=== PATIENT | female | born 1955 | race Caucasian/White ===

== ENCOUNTER 2017-04-09 16:15 | Emergency (ER) | payer OTHER ==
[2017-04-09] MEDS ORDERED: ASPIRIN 81 MG CHEW TAB ONE (16:20)
[2017-04-09] MEDS ORDERED: ASPIRIN 81 MG CHEW TAB PO ONE ×2 (16:35→16:47)
[2017-04-09] MEDS: NITROGLYCERIN 0.4 MG TAB.SUBL SL PRN ×2 (16:43→17:05)
[2017-04-09] MEDS ORDERED: METOPROLOL TARTRATE 5 MG/5 ML VIAL IVP ONE ×2 (16:45→16:48)
[2017-04-09] MEDS ORDERED: CLOPIDOGREL BISULFATE 75 MG TABLET PO ONE (16:47)
[2017-04-09] MEDS ORDERED: ENOXAPARIN SODIUM 80 MG/0.8 ML DISP.SYRIN SQ ONE (16:47)
[2017-04-09 16:48] LABS: BASOPHILS % 0.1 (0.0-1.5); EOSINOPHILS % 0.1 % (0.0-6.8); MEAN CORPUSCULAR HEMOGLOBIN 28.6 pg (28.0-34.0); MEAN CORPUSCULAR VOLUME 87.2 fl (80.0-100.0); MONOCYTES % 2.9 % (0.0-11.0); NEUTROPHILS # 19.2 # k/uL (1.4-7.7)
[2017-04-09] MEDS ORDERED: 0.9 % SODIUM CHLORIDE 1,000 ML IV ONE (16:52)
[2017-04-09 16:59] LABS: eGFR (African) > 60; eGFR (Non-African) > 60
--- NOTE | 2017-04-09 17:34 | Diagnostic Imaging Report ---
[facility] [id number] [facility] [address] [place], [place]. [address] Report Submission Date: Apr 09, 2017 5:02:21 PM CDT Patient Study Name: FRANKO WEISS Date: Apr 09, 2017 4:42:13 PM CDT Modality Type: CR Gender: F Description: CHEST : 55 Institution: [facility] Physician: VINNIE KATHLEEN - JACQUELINE Examination: Portable chest History: Chest discomfort Findings: Single view of the chest demonstrates a normal cardiac and mediastinal silhouette. Lung king without focal infiltrate. No effusion. Post cardiac surgery sternal wires. Osseous structures are appropriate for age. Impression: No acute process. Electronically signed on Apr 09, 2017 5:02:21 PM CDT by: Mauricio MATTHEWS
[2017-04-09] MEDS ORDERED: NITROGLYCERIN 0.4 MG TAB.SUBL SL ONE (17:36)
[2017-04-09] MEDS ORDERED: INSULIN REGULAR, HUMAN 100 UNIT/ML 3ML VIAL ONE (17:38)
--- NOTE | 2017-04-09 17:38 | ED Physician Documentation ---
Chest Pain - HISTORIAN Historian: patient - HPI Chief Complaint: Chest Pain Onset: hours (5 hours) Timing: still present, better Duration: constant Last known Well Date: 04/09/17 Last Known Well Time: 12:00 Last known Well Code/Unknown Code: Known Context: rest Severity: moderate Quality: tightness Chest Pain Radiation: shoulders (left), back Chest Pain Signs/Symptoms: diaphoresis, dyspnea Further Comments: yes (Patient states that she has a history of coronary artery disease. Has been having some intermittent chest pain that states is been stable without any increase frequency or intensity. Today at approximately noon patient developed some severe substernal chest pain with radiation into the left shoulder and arm and into the back area. It was associated with some diaphoresis and shortness of breath. Patient describes the pain as being 10 out of 10. Patient subsequently took one sublingual nitroglycerin with no relief. Approximately four hours as of the patient started having pain she came to the ED for evaluation. Patient has a history of HTN, hyperlipemia, boarderline DM.) - ROS CONST: no problems. denies: fever SKIN/ENDO: none - PAST HX [place] risk factors: hypertension, hyperlipidemia DVT/PE Risk Factors: none. denies: leg swelling, bedridden, paralysis, prior DVT Neuro deficit: none Lung disease: none Surgeries/Procedures: cardiac bypass (2 vessel 1999), hysterectomy Allergies/Adverse Reactions: Allergies Allergy/AdvReac Type Severity Reaction Status Date / Time azithromycin Allergy Verified 03/23/15 17:27 Home Medications: Ambulatory Orders Medication Instructions Recorded Aspirin [Ritu] 325 mg PO DAILY 03/23/15 - SOCIAL HX Smoking History: quit less than 1 year (quit 4 months ago) Alcohol Use: none Drug Use: none - FAMILY HX Family HX: CAD over 55 - VITAL SIGNS Vital Signs: Vital Signs Temp Pulse Resp BP Pulse Ox 142/71 07/09/16 09:20 - REVIEWED ASSESSMENTS Nursing Assessment Reviewed: Yes Vitals Reviewed: Yes Progress - Results/Orders Results/Orders: 17:17 Patient is resting and is pain free at this time. 17:37 Patient states that her pain is returning again and is a 2/10. Repeat NTG. 18:00 Patient is chest pain free ED Results Lab/Radiology - Radiology Radiology Impressions: Report Submission Date: Apr 09, 2017 5:02:21 PM CDT Patient Study Name: FRANKO WEISS Date: Apr 09, 2017 4:42:13 PM CDT Modality Type: CR Gender: F Description: CHEST : 55 Institution: [facility] Physician: VINNIE KATHLEEN - JACQUELINE Examination: Portable chest History: Chest discomfort Findings: Single view of the chest demonstrates a normal cardiac and mediastinal silhouette. Lung king without focal infiltrate. No effusion. Post cardiac surgery sternal wires. Osseous structures are appropriate for age. Impression: No acute process. Electronically signed on Apr 09, 2017 5:02:21 PM CDT by: Mauricio Hammer - Orders Orders: ED Orders Category Date Time Status Aspirin Med 04/09/17 16:20 Discontinued 324 mg .ROUTE .STK-MED ONE Chest Pain Physical Exam - EXAM General Appearance: alert, moderate distress, anxious Neck: nml inspection, no carotid bruit. No: JVD present, lymphadenopathy Respiratory: no resp. distress, chest non-tender, nml breath sounds. No: resp.distress, wheezes, rales, rhonchi CVS: reg. rate & rhythm, no murmur, no gallop, no friction rub, pulses equal Abdomen: soft, no organomegaly, normal bowel sounds, no abdominal bruit Skin: diaphoresis (mild) Extremities: non-tender, no edema Neuro: cognition normal Discharge Clincal Impression: Hyperglycemia Chest pain Qualifiers: Chest pain type: chest pain due to myocardial ischemia Ischemic chest pain type : unstable angina pectoris Qualified Code(s): I20.0 - Unstable angina Referrals: Janeen Wright MD [Primary Care Provider] - 2 Days Home Medications: Ambulatory Orders Aspirin [Ritu] 325 mg PO DAILY 03/23/15 Condition: Stable Disposition: 01 HOME, SELF-CARE Palliative/Comfort Care: Palliative Care Decision to Admit: [id number] Date of Decison to Admit: 04/09/17 Decision Time: 17:25
[2017-04-09 18:25] VITALS: BP 126/58
[2017-04-10] MEDS ORDERED: INSULIN REGULAR, HUMAN 100 UNIT/ML 3ML VIAL SQ ONE (17:35)
== END 2017-04-09 17:55 | disposition short-term general hospital (02) ==
LOC: ED 16:15
DX: R73.9 Hyperglycemia, unspecified (principal); I20.0 Unstable angina
CPT/HCPCS: 71010; 80053; 84484; 85025; 85379; 93005; J1650; J1815; J3490; J7030; 96361; 96372; 99283

== ENCOUNTER 2017-04-30 09:08 | Outpatient (CLI) | payer OTHER | END 2017-04-30 09:10 | LOC: LAB 09:08 | PROVIDERS: ATTEND Family Medicine | DX: I25.810 Atherosclerosis of coronary artery bypass graft(s) without angina pectoris (principal) | CPT/HCPCS: 36415; 80061 ==